=== PATIENT | female | born 1970 | race Caucasian/White ===

== ENCOUNTER 2018-07-15 12:50 | Inpatient (IN) | payer OTHER ==
[~2018-07-15] VITALS: Ht 162.6 cm; Wt 110.9 kg
[2018-07-15 13:28] LABS: BASOPHILS ABSOLUTE AUTO 0.06 K/mm3 (0.00-0.23); BASOPHILS PERCENT AUTO 0 % (0-2); EOSINOPHILS ABSOLUTE AUTO 0.02 K/mm3 (0.00-0.68); EOSINOPHILS PERCENT AUTO 0 % (0-6); Hematocrit 33.8 % (33.0-51.0); Hemoglobin 10.1 g/dL (11.5-16.0); IMMATURE GRAN ABSOLUTE AUTO 0.13 K/mm3 (0.00-0.10); IMMATURE GRAN PERCENT AUTO 1 % (0-1); LYMPHOCYTES ABSOLUTE AUTO 1.84 K/mm3 (0.84-5.20); LYMPHOCYTES PERCENT AUTO 11 % (21-46); MONOCYTES ABSOLUTE AUTO 1.19 K/mm3 (0.16-1.47); MONOCYTES PERCENT AUTO 7 % (4-13); Mean Corpuscular HGB 22.7 pg (26.0-34.0); Mean Corpuscular HGB Conc 29.9 g/dL (31.5-36.5); Mean Corpuscular Volume 76 fL (80-100); Mean Platelet Volume 8.7 fL (9.1-12.4); NEUTROPHILS ABSOLUTE AUTO 13.96 K/mm3 (1.96-9.15); NEUTROPHILS PERCENT AUTO 81 % (41-73); Platelet Count 728 K/mm3 (150-400); RDW Coefficient Variation 18.5 % (11.7-14.2); RDW Standard Deviation 50.6 fL (35.1-46.3); Red Blood Cell Count 4.45 M/mm3 (3.80-5.20)
[2018-07-15 13:59] LABS: Alanine Aminotransfer (ALT/SGP 16 U/L (12-78); Albumin, Blood 3.2 g/dL (3.4-5.0); Albumin/Globulin Ratio 0.6 (0.8-1.8); Alk Phos 113 U/L (50-136); Anion Gap 9 mmol/L (6-16); Aspartate Aminotrans (AST/SGOT 11 U/L (12-37); Bilirubin, Total 0.5 mg/dL (0.1-1.0); Blood Urea Nitrogen 12 mg/dL (8-24); Bun/Creatinine Ratio 17.4 (12.0-20.0); CO2, Blood 24 mmol/L (21-32); Calcium, Blood 9.1 mg/dL (8.5-10.1); Chloride, Blood 106 mmol/L (98-108); Creatinine, Blood 0.69 mg/dL (0.40-1.00); Globulin, Blood 5.2 g/dL (2.2-4.0); Glomerular Filtration Rate >60 (60-); Glucose, Blood 112 mg/dL (70-99); Potassium, Blood 3.5 mmol/L (3.5-5.5); Sodium, Blood 139 mmol/L (136-145); Total Protein, Blood 8.4 g/dL (6.4-8.2); Troponin I <0.015 ng/mL (0.000-0.040)
[2018-07-15 14:47] LABS: Source, Urine Clean Catch
[2018-07-15 14:59] LABS: Appearance, Urine Clear (Clear); Bilirubin, Urine Neg (Neg); Blood, Urine Neg (Neg); Color, Urine Yellow (P-Yellow); Glucose Qualitative, Urine Neg (Neg); Ketones, Urine Neg (Neg); Leukocyte Esterase, Urine Neg (Neg); Nitrite, Urine Neg (Neg); Protein, Urine Neg (Neg); Specific Gravity, Urine 1.015 (1.003-1.022); Urobilinogen, Urine NORM (Normal)
[2018-07-15] MEDS ORDERED: Ibuprofen Ib200 MG PO (17:28)
[2018-07-15 18:46] LABS: Free Thyroxine 1.62 ng/dL (0.70-1.60); Thyroxine (T4) 10.8 ug/dL (4.8-13.9)
[2018-07-15 18:48] LABS: Triiodothyronine, Free 2.81 pg/mL (2.18-3.98)
--- NOTE | 2018-07-15 20:45 | NUR ---
ASSUMED CARE- PT ARRIVES TO [facility] FROM ER AT APPROXIMATELY 2020. AOX4. CURRENTLY TACHYCARDIC WITH A RATE IN THE 120'S IN NSR, ALL OTHER VSS. PT AMBULATES WITH STANDBY ASSIST TO HOSPITAL BED WITHOUT DIFFICULTY. CURRENTLY REPORTING PAIN IN RUQ AT A LEVEL OF 8/10 AND REQUESTING MEDICATION FOR PAIN REPORTING SLIGHT DIZZINESS WITH PAIN MEDICATION ADMINISTRATION. PT ORIENTED TO ROOM AND CALL LIGHT SYSTEM, INSTRUCTED TO CALL FOR ASSISTANCE AND REFRAIN FROM SELF AMBULATION DUE TO FALL RISK. WILL CONTINUE WITH ADMISSION AND ASSESSMENT. BED IN LOW POSITION, CALL LIGHT IN REACH. BED ALARM SET FOR SAFETY.
[2018-07-15] MEDS ORDERED: ZYRTEC10 M1 PO (21:11)
--- NOTE | 2018-07-16 01:14 | NUR ---
PHYSICIAN CONTACTED- PRIMARY RN TO ROOM AFTER PT REQUESTING PAIN MEDICATION. PT FOUND TO BE SHIVERING AND HYPERVENTILATING, REQUESTING WARM BLANKETS. VITAL SIGNS TAKEN- T:100.7 P: 145 R:44 BP: 157/90 O2: 88% ON RA. PT REPORTING THAT HER HANDS HAND LEGS WERE STARTING TO CRAMP UP- ENCOURAGED PT TO SLOW BREATHING WITH PURSED LIP BREATHING TECHNIQUE. TOP BLANKET REMOVED, THERMOSTAT TURNED DOWN IN ROOM TO ASSIST WITH ELEVATED TEMP. 4L O2 VIA NASAL CANNULA PLACED. PT REQUESTING MOTRIN TO USE FOR FEVER DUE TO TYLENOL SENSITIVITY THAT CAUSES REBOUND PAIN WHEN TAKEN. PT AGREES TO TAKE TYLENOL AT THIS TIME TO DECREASE TEMP. PT MEDICATED- SEE EMAR. HR REMAINS ELEVATED IN THE 130-140S. DR WRIGHT CONTACTED AND UPDATED ON PATIENT CONDITION. ORDERS RECEIVED FOR IVP LOPRESSOR FOR ELEVATED HR AND TO CONTINUE FLUIDS. NO MOTRIN ORDERED DUE TO POTENTIAL CONTRAINDICATION WITH PROCEDURE AND GI DIFFICULTIES. WILL INPUT ORDERS AND ADMINISTER INDICATED.
[2018-07-16 04:15] LABS: BASOPHILS ABSOLUTE AUTO 0.03 K/mm3 (0.00-0.23); BASOPHILS PERCENT AUTO 0 % (0-2); EOSINOPHILS ABSOLUTE AUTO 0.01 K/mm3 (0.00-0.68); EOSINOPHILS PERCENT AUTO 0 % (0-6); Hematocrit 27.8 % (33.0-51.0); IMMATURE GRAN ABSOLUTE AUTO 0.06 K/mm3 (0.00-0.10); IMMATURE GRAN PERCENT AUTO 0 % (0-1); LYMPHOCYTES ABSOLUTE AUTO 0.38 K/mm3 (0.84-5.20); LYMPHOCYTES PERCENT AUTO 3 % (21-46); MONOCYTES ABSOLUTE AUTO 0.22 K/mm3 (0.16-1.47); MONOCYTES PERCENT AUTO 2 % (4-13); Mean Corpuscular HGB 22.3 pg (26.0-34.0); Mean Corpuscular HGB Conc 28.8 g/dL (31.5-36.5); Mean Corpuscular Volume 78 fL (80-100); Mean Platelet Volume 8.8 fL (9.1-12.4); NEUTROPHILS ABSOLUTE AUTO 13.42 K/mm3 (1.96-9.15); NEUTROPHILS PERCENT AUTO 95 % (41-73); NRBC ABSOLUTE 0.03 K/mm3 (0.00-0.02); NRBC Auto 0.2 /100 WBC (0.0-0.2); Platelet Count 474 K/mm3 (150-400); RDW Coefficient Variation 18.7 % (11.7-14.2); RDW Standard Deviation 53.6 fL (35.1-46.3); Red Blood Cell Count 3.58 M/mm3 (3.80-5.20); White Blood Cell Count 14.12 K/mm3 (4.00-11.30)
[2018-07-16 06:00] LABS: Alanine Aminotransfer (ALT/SGP 16 U/L (12-78); Albumin, Blood 2.2 g/dL (3.4-5.0); Albumin/Globulin Ratio 0.6 (0.8-1.8); Alk Phos 94 U/L (50-136); Anion Gap 8 mmol/L (6-16); Aspartate Aminotrans (AST/SGOT 20 U/L (12-37); Blood Urea Nitrogen 12 mg/dL (8-24); Bun/Creatinine Ratio 12.7 (12.0-20.0); CO2, Blood 22 mmol/L (21-32); Calcium, Blood 7.5 mg/dL (8.5-10.1); Chloride, Blood 113 mmol/L (98-108); Creatinine, Blood 0.95 mg/dL (0.40-1.00); Glomerular Filtration Rate >60 (60-); Glucose, Blood 111 mg/dL (70-99); Potassium, Blood 3.2 mmol/L (3.5-5.5); Sodium, Blood 143 mmol/L (136-145)
[2018-07-16 06:01] LABS: Total Protein, Blood 6.2 g/dL (6.4-8.2)
--- NOTE | 2018-07-16 06:27 | NUR ---
SHIFT SUMMARY- PT HAS REMAINED AOX4 THROUGHOUT SHIFT. PLEASANT AND COOPERATIVE WITH CARE. NO FURTHER INSTANCES OF FEVER OR HYPERVENTILATION NOTED SINCE PREVIOUS EPISODE. PT HAS RESTED ON AND OFF THROUHGOUT THE NIGHT. CONTINUES TO REPORT PAIN TO RUQ THAT IS SLIGHTLY RELIEVED WITH ORDERED MEDICATIONS- PT REPORTS DECENT PAIN CONTROL THIS AM UPON ROUNDING. PT REPORTS THAT SHE DID NOT NOTICE REBOUND PAIN WITH TYLENOL DUE TO COVERAGE WITH OTHER MEDICATIONS. RESPIRATIONS CURRENTLY EVEN AND UNLABORED WITH O2 SATS >90% ON 2L VIA NASAL CANNULA. PT HAS BEEN NPO SINCE RI EXCEPT SIPS OF WATER WITH MEDS AND OCCASIONAL ICE CHIPS. HR HAS TRENDED DOWNWARD WITH PAIN CONTROL AND IV METOPROLOL PUSH GIVEN- SEE EMAR. NO OTHER CHANGES NOTED FROM INITIAL ASSESSMENT. WILL CONTINUE TO MONITOR AND REPORT TO ONCOMING RN. BED IN LOW POSITION,CALL LIGHT IN REACH.
--- NOTE | 2018-07-16 11:03 | NUR ---
Patient up to Ambulate independently. Gait steady. Surgical site prepped with 2% Chlorhexidine cloth wipe. History, Chart, Medications and Allergies reviewed before start of procedure.Lungs clear T/O to Auscultation. Patient confirms NPO status and agrees with scheduled surgery. AT BEDSIDE. PT STATES SHE FEELS LIKE HER BREATHING IS FEELING, "A LITTLE SHALLOWY". PT ABLE TO TAKE A DEEP BREATH WITH GUIDANCE. STATES FEELING SHARP PAIN IN RIGHT AXILLA ARE 6/10. SPOKE TO DR TERRY REGARDING C/O.
--- NOTE | 2018-07-16 11:40 | NUR ---
The pt reports this morning that she has had good pain control. She has mentioned several times that her pain was not well-controlled when she was at [facility] for her hysterectomy; she is very concerned about "staying on top of the pain control" and asks frequently for medications before the pain is moderate, in order to avoid severe pain. States that she usually "stays away from doctors and medical things". She does not have a PCP nor a regular dentist. 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 States that she has not been to a dentist in years, despite the fact that the problem has been ongoing for years. Encouraged her to get preventative care now that she does have medical and dental insurance, and to get established with a PCP and a dentist. Also offered to her lists of currently accepting providers with whom she could establish care. She does not seem very interested in this, although she does acknowledge that it is a good idea.
--- NOTE | 2018-07-17 04:35 | NUR ---
SHIFT SUMMARY THE PATIENT PRESENTED THIS SHIFT WITH A TACHY HEART RATE IN THE 110'S, A&O X4, AND LUNG SOUNDS THAT WERE CLEAR. THE PATIENT'S SPOUSE HAS BEEN IN THE ROOM WITH THE PATIENT ALL SHIFT. THE PATIENT HAS COMPLAINED OF PAIN DURNING THE SHIFT AND HAS RECEIVED MEDICATIONS PER ORDERS. THE PATIENT IS SLEEPING AT THIS TIME, WILL CONTINUE TO MONITOR.
[2018-07-17 06:48] LABS: Albumin, Blood 1.9 g/dL (3.4-5.0); Anion Gap 7 mmol/L (6-16); Blood Urea Nitrogen 10 mg/dL (8-24); Bun/Creatinine Ratio 16.2 (12.0-20.0); CO2, Blood 22 mmol/L (21-32); Chloride, Blood 110 mmol/L (98-108); Creatinine, Blood 0.62 mg/dL (0.40-1.00); Glomerular Filtration Rate >60 (60-); Glucose, Blood 144 mg/dL (70-99); Phosphorus, Blood 2.3 mg/dL (2.5-4.9); Potassium, Blood 4.4 mmol/L (3.5-5.5); Sodium, Blood 139 mmol/L (136-145)
[2018-07-17 08:13] LABS: BASOPHILS ABSOLUTE AUTO 0.01 K/mm3 (0.00-0.23); BASOPHILS PERCENT AUTO 0 % (0-2); EOSINOPHILS PERCENT AUTO 0 % (0-6); Hematocrit 23.5 % (33.0-51.0); Hemoglobin 6.7 g/dL (11.5-16.0); IMMATURE GRAN ABSOLUTE AUTO 0.03 K/mm3 (0.00-0.10); IMMATURE GRAN PERCENT AUTO 0 % (0-1); LYMPHOCYTES ABSOLUTE AUTO 0.74 K/mm3 (0.84-5.20); LYMPHOCYTES PERCENT AUTO 6 % (21-46); MONOCYTES ABSOLUTE AUTO 0.81 K/mm3 (0.16-1.47); MONOCYTES PERCENT AUTO 7 % (4-13); Mean Corpuscular HGB 21.6 pg (26.0-34.0); Mean Corpuscular HGB Conc 28.5 g/dL (31.5-36.5); Mean Corpuscular Volume 76 fL (80-100); Mean Platelet Volume 9.2 fL (9.1-12.4); NEUTROPHILS ABSOLUTE AUTO 10.36 K/mm3 (1.96-9.15); NEUTROPHILS PERCENT AUTO 87 % (41-73); Platelet Count 457 K/mm3 (150-400); RDW Coefficient Variation 18.4 % (11.7-14.2); RDW Standard Deviation 50.8 fL (35.1-46.3); White Blood Cell Count 11.95 K/mm3 (4.00-11.30)
--- NOTE | 2018-07-17 08:24 | NUR ---
NURSING PCU DAYSHIFT: Assumed care of pt at approx 0700. A/O, cooperative w/most aspects of care. S/O at bedside. C/O 8/10 abd discomfort, tx w/meds and positioning. Midline healing abd incision which is open to air, fairly dry w/1cm area of small drainage noted. Abd inc x3 r/t lap rakesh from previous day, adhesive dressings in place, LIGIA present in R abd draining serosanguineous fluid. Tele in place, ST, no c/o CP/pressure, BP stable, no noted edema. L/S w/crackles t/o, respirations shallow, O2 sat mid 90's on RA, mild dyspnea w/exertion, denies cough. Abd tender r/t recent procedures, BT+, abd binder in place, voiding w/o difficulty per pt. PIV x1, NS infusing at 100cc/hr upon initial assessment. Spouse at bedside this a.m. Pt and s/o c/o medication administration t/o the NOC, provided education on abx schedule. Pt also expressed concerns regarding rate control medications and DVT prevention meds, provided additional education to pt and spouse, verbalized understanding. Education pt on importance of getting up and walking along w/deep breathing exercises, demonstrated understanding. IVF placed on standby at this time d/t pt's poor respiratory status, pt currently on CL diet, will discuss IVF w/PMD. No s/s of acute distress at this time, call light in reach, cont to monitor for changes.
[2018-07-17 15:53] LABS: Hematocrit 27.5 % (33.0-51.0); Hemoglobin 8.2 g/dL (11.5-16.0); Mean Corpuscular HGB 23.3 pg (26.0-34.0); Mean Corpuscular HGB Conc 29.8 g/dL (31.5-36.5); Mean Corpuscular Volume 78 fL (80-100); Mean Platelet Volume 9.1 fL (9.1-12.4); Platelet Count 501 K/mm3 (150-400); RDW Coefficient Variation 18.6 % (11.7-14.2); RDW Standard Deviation 52.7 fL (35.1-46.3); Red Blood Cell Count 3.52 M/mm3 (3.80-5.20); White Blood Cell Count 11.41 K/mm3 (4.00-11.30)
[2018-07-18 06:08] LABS: BASOPHILS ABSOLUTE AUTO 0.03 K/mm3 (0.00-0.23); BASOPHILS PERCENT AUTO 0 % (0-2); EOSINOPHILS ABSOLUTE AUTO 0.04 K/mm3 (0.00-0.68); EOSINOPHILS PERCENT AUTO 1 % (0-6); Hematocrit 25.8 % (33.0-51.0); Hemoglobin 7.7 g/dL (11.5-16.0); IMMATURE GRAN ABSOLUTE AUTO 0.08 K/mm3 (0.00-0.10); IMMATURE GRAN PERCENT AUTO 1 % (0-1); LYMPHOCYTES ABSOLUTE AUTO 1.33 K/mm3 (0.84-5.20); LYMPHOCYTES PERCENT AUTO 15 % (21-46); MONOCYTES ABSOLUTE AUTO 0.65 K/mm3 (0.16-1.47); MONOCYTES PERCENT AUTO 8 % (4-13); Mean Corpuscular HGB 23.1 pg (26.0-34.0); Mean Corpuscular HGB Conc 29.8 g/dL (31.5-36.5); Mean Corpuscular Volume 77 fL (80-100); Mean Platelet Volume 9.3 fL (9.1-12.4); NEUTROPHILS ABSOLUTE AUTO 6.49 K/mm3 (1.96-9.15); NEUTROPHILS PERCENT AUTO 75 % (41-73); NRBC ABSOLUTE 0.03 K/mm3 (0.00-0.02); NRBC Auto 0.3 /100 WBC (0.0-0.2); Platelet Count 474 K/mm3 (150-400); RDW Coefficient Variation 18.6 % (11.7-14.2); RDW Standard Deviation 52.7 fL (35.1-46.3); Red Blood Cell Count 3.34 M/mm3 (3.80-5.20); White Blood Cell Count 8.62 K/mm3 (4.00-11.30)
--- NOTE | 2018-07-18 08:22 | NUR ---
SHIFT SUMMARY PT A&O X4 T/O SHIFT. POD#2 LAP DINAH; LAP SITES DRY AND INTACT, SCANT DRAINAGE NOTED. LIGIA DRAINED 40ML OVER SHIFT. FEW BT, ABD SOFT. NAUSEA WITH EMESIS X1 TREATED PER EMAR. MIDLINE INSC, SCANT CRUSTY DRAINAGE NOTED; OPEN TO AIR. PAIN MANGED PER EMAR; PT REFUSED OXYCODONE T/O SHIFT D/T PT REPORTED SIDE EFFECTS. PT INDEPENDENT IN ROOM; SAFETY WHEN OOB DISCUSSED WITH PT. PT DENIES SOB AND CP;RA; TELEMETRY IN PLACE, SR PER AUTOMATIC PROFILE SHAPER OPERATOR. CALL LIGHT IN REACH; PT DEMONSTRATES USE. SIGNIFICANT OTHER IN ROOM T/O SHIFT. REPORT GIVEN TO DAY SHIFT RN.
[2018-07-18] MEDS ORDERED: Oyster Shell C500 MG PO (14:12)
[2018-07-18] MEDS ORDERED: CEFP200 PO (14:12)
[2018-07-18] MEDS ORDERED: DOCU100 PO (14:12)
[2018-07-18] MEDS ORDERED: METO5A PO (14:13)
[2018-07-18] MEDS ORDERED: ROXICODONE5 MG PO (14:13)
[2018-07-18] MEDS ORDERED: METO50 PO (14:14)
[2018-07-18] MEDS ORDERED: ONDA4 PO (14:14)
[2018-07-18] MEDS ORDERED: METR500 PO (14:14)
[2018-07-18] MEDS ORDERED: SACC250C PO (14:15)
--- NOTE | 2018-07-18 15:55 | NUR ---
PATIENT D/C'D HOME WITH SO AT THIS TIME; BOTH STATE UNDERSTANDING OF MEDS, WOUND CARE, LIGIA DRAIN CARE, ACTIVITY, F/U APPT (SUNDAY,} ETC. PATIENT STATES PAIN CONTROLLED WITH IBUPROFEN. PATIENT DECLINES RX FOR OXYCODONE. RX DESTROYED, Mike DIEZ, MATERIAL CONTROL SPECIALIST WITNESSED.
[2018-07-18 22:10] LABS: THYROGLOBULIN ANTIBODY 1278.8 IU/mL (0.0-0.9); THYROID PEROXIDASE (TPO) AB 249 IU/mL (0-34)
== END 2018-07-18 16:00 | disposition home or self-care (01) | DRG 854 ==
LOC: ER 12:50 → PCU 12:51 → ERHOLD 12:51 → PCU 20:18 → SURS 07-17 13:20
PROVIDERS: Physician Assistant; Surgery; ADMIT Family Medicine
PROC: 0FT44ZZ Resection of Gallbladder, Percutaneous Endoscopic Approach (ICD-10-PCS; principal; 2018-07-16 11:30)
DX: A41.9 Sepsis, unspecified organism (principal); K80.12 Calculus of gallbladder with acute and chronic cholecystitis without obstruction; N13.30 Unspecified hydronephrosis; D64.9 Anemia, unspecified; D47.3 Essential (hemorrhagic) thrombocythemia; E01.0 Iodine-deficiency related diffuse (endemic) goiter; E66.9 Obesity, unspecified; Z83.49 Family history of other endocrine, nutritional and metabolic diseases; Z90.710 Acquired absence of both cervix and uterus; Z88.6 Allergy status to analgesic agent; Z88.2 Allergy status to sulfonamides; Z88.8 Allergy status to other drugs, medicaments and biological substances; Z91.018 Allergy to other foods
CPT/HCPCS: 36415; 36430; 71260; 74177; 80053; 80069; 81003; 83520; 83605; 83690; 84436; 84439; 84443; 84481; 84482; 84484; 85025; 85027; 86376; 86800; 86850; 86900; 86901; 86923; 87040; 88304; 93005; 93010; 94762; 96361; 96365; 96366; 96367; 96375; 96376; 99285-25; G0378; J0696; J1100; J1170; J1644; J1940; J2250; J2270; J2370; J2405; J2710; J2765; J3010; J3480; J7030; J7050; J7120; P9016; P9612; Q9967

== ENCOUNTER → 2018-08-13 | Outpatient (CLI) | payer OTHER ==
[~2018-08-13] MED LIST: CEFP200 PO; DOCU100 PO; Ibuprofen Ib200 MG PO; METO50 PO; METO5A PO; METR500 PO; ONDA4 PO; Oyster Shell C500 MG PO; ROXICODONE5 MG PO; SACC250C PO; ZYRTEC10 M1 PO
[2018-08-13 20:17] LABS: BASOPHILS ABSOLUTE AUTO 0.07 K/mm3 (0.00-0.23); BASOPHILS PERCENT AUTO 1 % (0-2); EOSINOPHILS ABSOLUTE AUTO 0.18 K/mm3 (0.00-0.68); EOSINOPHILS PERCENT AUTO 2 % (0-6); Hematocrit 39.9 % (33.0-51.0); Hemoglobin 11.5 g/dL (11.5-16.0); IMMATURE GRAN ABSOLUTE AUTO 0.02 K/mm3 (0.00-0.10); IMMATURE GRAN PERCENT AUTO 0 % (0-1); LYMPHOCYTES ABSOLUTE AUTO 2.61 K/mm3 (0.84-5.20); LYMPHOCYTES PERCENT AUTO 28 % (21-46); MONOCYTES ABSOLUTE AUTO 0.76 K/mm3 (0.16-1.47); MONOCYTES PERCENT AUTO 8 % (4-13); Mean Corpuscular HGB 21.6 pg (26.0-34.0); Mean Corpuscular HGB Conc 28.8 g/dL (31.5-36.5); Mean Corpuscular Volume 75 fL (80-100); Mean Platelet Volume 9.9 fL (9.1-12.4); NEUTROPHILS ABSOLUTE AUTO 5.55 K/mm3 (1.96-9.15); NEUTROPHILS PERCENT AUTO 60 % (41-73); Platelet Count 469 K/mm3 (150-400); RDW Coefficient Variation 19.6 % (11.7-14.2); RDW Standard Deviation 52.1 fL (35.1-46.3); Red Blood Cell Count 5.32 M/mm3 (3.80-5.20); White Blood Cell Count 9.19 K/mm3 (4.00-11.30)
[2018-08-13 20:52] LABS: Alanine Aminotransfer (ALT/SGP 31 U/L (12-78); Albumin, Blood 3.6 g/dL (3.4-5.0); Albumin/Globulin Ratio 0.8 (0.8-1.8); Alk Phos 111 U/L (50-136); Anion Gap 7 mmol/L (6-16); Aspartate Aminotrans (AST/SGOT 18 U/L (12-37); Bilirubin, Total 0.3 mg/dL (0.1-1.0); Blood Urea Nitrogen 12 mg/dL (8-24); Bun/Creatinine Ratio 16.4 (12.0-20.0); CO2, Blood 25 mmol/L (21-32); Chloride, Blood 108 mmol/L (98-108); Creatinine, Blood 0.73 mg/dL (0.40-1.00); Free Thyroxine 1.12 ng/dL (0.70-1.60); Globulin, Blood 4.4 g/dL (2.2-4.0); Glomerular Filtration Rate >60 (60-); Glucose, Blood 95 mg/dL (70-99); Potassium, Blood 3.7 mmol/L (3.5-5.5); Sodium, Blood 140 mmol/L (136-145)
== END | disposition home or self-care (01) ==
LOC: LAB SHORT 19:52 → LAB 19:52
PROVIDERS: Family Medicine
DX: D62 Acute posthemorrhagic anemia (principal); E03.8 Other specified hypothyroidism; E83.51 Hypocalcemia
CPT/HCPCS: 80053; 84439; 84443; 85025

== ENCOUNTER 2019-03-27 00:10 | Emergency (ER) | payer OTHER ==
[~2019-03-27] VITALS: Ht 160 cm; Wt 125.6 kg
[2019-03-27 01:35] LABS: Source, Urine Clean Catch
[2019-03-27 01:41] LABS: Bilirubin, Urine Neg (Neg); Blood, Urine 5+ (Neg); Glucose Qualitative, Urine Neg (Neg); Ketones, Urine Neg (Neg); Leukocyte Esterase, Urine 3+ (Neg); Nitrite, Urine Pos (Neg); Protein, Urine 2+ (Neg); Specific Gravity, Urine 1.015 (1.003-1.022); Urobilinogen, Urine NORM (Normal)
[2019-03-27] MEDS ORDERED: THYROID (01:49)
[2019-03-27] MEDS ORDERED: [UNRECOGNIZED DRUG - CODE] PO (01:52)
[2019-03-27 01:53] LABS: Appearance, Urine Hazy (Clear); Color, Urine Yellow (P-Yellow)
[2019-03-27 02:02] LABS: Influenza A Negative (NEGATIVE); Influenza B Negative (NEGATIVE)
[2019-03-27 02:07] LABS: Bacteria Many /hpf; Squamous Epithelial Cells Few /hpf (Few); White Blood Cells, Urine TNTC /hpf (0-5)
[2019-03-27 02:19] LABS: BASOPHILS ABSOLUTE AUTO 0.05 K/mm3 (0.00-0.23); BASOPHILS PERCENT AUTO 0 % (0-2); EOSINOPHILS ABSOLUTE AUTO 0.04 K/mm3 (0.00-0.68); EOSINOPHILS PERCENT AUTO 0 % (0-6); Hematocrit 35.4 % (33.0-51.0); Hemoglobin 10.7 g/dL (11.5-16.0); IMMATURE GRAN ABSOLUTE AUTO 0.09 K/mm3 (0.00-0.10); IMMATURE GRAN PERCENT AUTO 1 % (0-1); LYMPHOCYTES ABSOLUTE AUTO 1.79 K/mm3 (0.84-5.20); LYMPHOCYTES PERCENT AUTO 13 % (21-46); MONOCYTES PERCENT AUTO 7 % (4-13); Mean Corpuscular HGB 22.3 pg (26.0-34.0); Mean Corpuscular HGB Conc 30.2 g/dL (31.5-36.5); Mean Corpuscular Volume 74 fL (80-100); Mean Platelet Volume 9.8 fL (9.1-12.4); NEUTROPHILS ABSOLUTE AUTO 10.96 K/mm3 (1.96-9.15); NEUTROPHILS PERCENT AUTO 79 % (41-73); Platelet Count 306 K/mm3 (150-400); RDW Coefficient Variation 18.4 % (11.7-14.2); RDW Standard Deviation 48.7 fL (35.1-46.3); Red Blood Cell Count 4.79 M/mm3 (3.80-5.20); White Blood Cell Count 13.83 K/mm3 (4.00-11.30)
[2019-03-27 02:32] LABS: Alanine Aminotransfer (ALT/SGP 29 U/L (12-78); Albumin, Blood 3.2 g/dL (3.4-5.0); Albumin/Globulin Ratio 0.8 (0.8-1.8); Alk Phos 112 U/L (50-136); Anion Gap 7 mmol/L (6-16); Aspartate Aminotrans (AST/SGOT 11 U/L (12-37); Bilirubin, Total 0.4 mg/dL (0.1-1.0); Blood Urea Nitrogen 20 mg/dL (8-24); Bun/Creatinine Ratio 20.6 (12.0-20.0); CO2, Blood 24 mmol/L (21-32); Chloride, Blood 110 mmol/L (98-108); Creatinine, Blood 0.97 mg/dL (0.40-1.00); Globulin, Blood 4.1 g/dL (2.2-4.0); Glomerular Filtration Rate >60 (60-); Glucose, Blood 126 mg/dL (70-99); Potassium, Blood 4.1 mmol/L (3.5-5.5); Sodium, Blood 141 mmol/L (136-145); Total Protein, Blood 7.3 g/dL (6.4-8.2)
[2019-03-27] MEDS ORDERED: CEFP200 PO (02:56)
== END 2019-03-27 04:36 | disposition home or self-care (01) ==
LOC: ER 00:10
PROVIDERS: Emergency Medicine
DX: N39.0 Urinary tract infection, site not specified (principal); Z88.2 Allergy status to sulfonamides; Z88.8 Allergy status to other drugs, medicaments and biological substances; Z91.018 Allergy to other foods; Z79.899 Other long term (current) drug therapy
CPT/HCPCS: 36415; 71046; 80053; 81001; 83605; 83690; 83880; 84484; 85025; 87077; 87086; 87186; 87804; 93005; 93010; 94640; 96361; 96365; 99284-25; J0696; J7030